=== PATIENT | male | born 1975 | race Caucasian/White ===

== ENCOUNTER → 2016-08-25 | Outpatient (REF) ==
[~2016-08-25] MED LIST: NO HOME MEDICATIONS
[2016-08-25 11:01] LABS: C-REACTIVE PROTEIN 0.6 mg/dL (0.0-0.9)
[2016-08-25 11:28] LABS: THYROID STIMULATING HORMONE 1.84 uIU/mL (0.465-4.680)
== END ==
LOC: ZLAB.WCH 10:36
DX: Z01.89 Encounter for other specified special examinations (principal)